=== PATIENT | male | born 2000 | race Caucasian/White ===

== ENCOUNTER 2020-09-23 11:15 | Emergency (ER) | payer SELFPAY ==
[2020-09-23 11:41] VITALS: BP 118/79; PULSE 58; RESP 18; TEMP 36.9; O2SAT 98; BMI 28.7
--- NOTE | 2020-09-23 11:59 | HMH.EDUTC ---
[facility] [place] Disposition Clinical Impression: Eye problem Disposition: Home, Self-Care Condition on Discharge: Good Instructions: Corneal Abrasion, DI for Eye Flash Burn, Erythromycin Ophthalmic Additional Instructions: Do not rub eye Take off patch tomorrow morning and apply ointment in eye every 6 hours for 3 days Follow up with [facility] if no improvement or any worsening of symptoms Return if needed Straight to ER if any life threatening symptoms Referrals: Juancho Mehta MD [Primary Care Provider] - As needed [facility] [Other] Forms: Work/School Release Time of Disposition: 12:47 Medical Decision Making - [place] Inquiry Pt receiving controlled substance: No [place] was queried for this patient: No Vital Signs: 09/23/20 11:41 09/23/20 12:49 Temperature 98.5 F 98.5 F Temperature Source Oral Pulse Rate 58 L Pulse Rate [Right Brachial] 58 L Respiratory Rate 18 18 Blood Pressure 118/79 Blood Pressure [Right Arm] 118/79 Blood Pressure Mean [Right Arm] 92 Blood Pressure Source [Right Arm] Automatic Cuff Blood Pressure Position [Right Arm] Sitting 02 Sat by Pulse Oximetry 98 Oxygen Delivery Method Room Air Orders (Tests/Meds): ED MEDICATIONS Discontinued Medications Generic Name Dose Route Start Last Admin Trade Name Freq PRN Reason Stop Dose Admin Erythromycin 1 gm 09/23/20 12:48 09/23/20 12:50 Erythromycin Base 1 Gm Oint...G. OP 09/23/20 12:49 1 gm ONCE ONE Administration Fluorescein Sodium 1 mg 09/23/20 12:48 09/23/20 12:50 Fluorescein Sodium 1mg Strip OP 09/23/20 12:49 1 mg ONCE ONE Administration Tetracaine HCl 0 ml 09/23/20 12:48 09/23/20 12:50 Tetracaine 0.5% Opth Yoselin 15ml OP 09/23/20 12:49 1 applicatio ONCE ONE Administration - Physician Consults Physician Consulted: Dr Díaz Time: 12:35 Reason -: Opthalmology Eval/Care Comment/Response: Spoke with Dr Díaz and he agreed, place erythromycin ointment in eye patch and removed in Morning and erythromycin ointment four times daily for the next 3 days Medical Decision Narrative: Eye exam with simons light performed and consulted with ED physician and they viewed eye also with simons lamp no obvious FB noted however small amount of uptake noted possibly small abrasion will treat like corneal abrasion and have patient follow up with [facility] for further evaluation and examination [facility] [place] HPI - General Stated complaint: Ao 718 12noon has foreign object in the r eye Time Seen by Provider: 09/23/20 11:59 Mode of Arrival: Ambulatory Source of Information: Patient Limitations: No Limitations Description of Symptoms (Recalled from Triage Doc. by RN): PATIENT REPORTS POSSIBLY GETTING SOMETHING IN HIS RIGHT EYE YESTERDAY WHILE WELDING AT WORK. 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 and not sure if he may have got something in his eye or has welders flash State that yesterday his eye was hurting and felt irritated like something was in it and watering State that was sensative to light states that today it feels a little better but feels like something may be in there and feels scratchy when he blinks denies changes in vision - Related Data Previous Rx's Medication Instructions Recorded ondansetron 4 mg disintegrating 4 mg PO Q8H PRN #14 tab 08/16/18 tablet Ibuprofen [Ibuprofen 600mg Tab] 600 mg PO Q6HP PRN #20 tab 01/06/19 Allergies Allergy/AdvReac Type Severity Reaction Status Date / Time No Known Allergies Allergy Verified 08/16/18 10:48 - Worker's Comp Is this a Worker's Comp case?: No [facility] History - Hepatiti
[2020-09-23 12:49] VITALS: BP 118/79; PULSE 58; RESP 18; TEMP 36.9; O2SAT 98
== END 2020-09-23 12:55 | disposition home or self-care (01) ==
PROVIDERS: Emergency Provider Nurse Practitioner; PCP Emergency Medicine
DX: H16.131 Photokeratitis, right eye (principal); W89.8XXA Exposure to other man-made visible and ultraviolet light, initial encounter; Y92.63 Factory as the place of occurrence of the external cause; Y99.0 Civilian activity done for income or pay
CPT/HCPCS: 99202; G0463

== ENCOUNTER 2021-08-16 22:56 | Emergency (ER) | payer SELFPAY ==
[2021-08-16 22:57] VITALS: BP 145/80; PULSE 60; RESP 17; TEMP 36.9; O2SAT 99; BMI 28.7
--- NOTE | 2021-08-16 23:01 | HMH.EDGENADL ---
ED Disposition Clinical Impression: Epigastric abdominal pain Disposition: Home, Self-Care Condition on Discharge: Good Instructions: DI for Acute Abdominal Pain Additional Instructions: Use the medication as prescribed and return to the ER for any new or worsening symptoms. Prescriptions: Sucralfate [Carafate 1gm Tab] 1 gm PO ACHS 10 Days #30 tab Transmission Status: Received by [facility] Referrals: Provider,Referral, [Primary Care Provider] - Forms: Work/School Release - Critical Care Critical Care Time: No Attestation: On , the high probability of a clinically significant, sudden or life threatening deterioration of the following system(s) required my full and direct attention, intervention and personal management. The time I documented below is in addition to time spent performing reported procedures but includes the following listed in this critical care notation. Medical Decision Making - Medical Records Medical records reviewed: Yes: I reviewed the patient's medical records. - [place] Inquiry Pt receiving controlled substance: No Vital Signs: 08/16/21 22:57 08/17/21 00:34 Temperature 98.5 F 98.2 F Temperature Source Oral Oral Pulse Rate 59 L Pulse Rate [Right] 60 Respiratory Rate 17 17 Blood Pressure 123/73 Blood Pressure [Right Arm] 145/80 H Blood Pressure Mean [Right Arm] 101 Blood Pressure Source [Right Arm] Automatic Cuff Blood Pressure Position [Right Arm] Supine 02 Sat by Pulse Oximetry 99 Oxygen Delivery Method Room Air Room Air - Lab Data Lab Results 08/16/21 23:40: WBC 8.5, RBC 4.82, Hgb 15.1, Hct 43.9, MCV 91.1, MCH 31.3 H, MCHC 34.3, RDW 12.6, Plt Count 278, MPV 8.7, Neut % (Auto) 56.8, Lymph % (Auto) 31.5, [place] % (Auto) 6.9, Eos % (Auto) 2.7, Baso % (Auto) 2.1 H, Neut # (Auto) 4.8, Lymph # (Auto) 2.7, [place] # (Auto) 0.6, Eos # (Auto) 0.2, Baso # (Auto) 0.2 08/16/21 23:40: Sodium 139, Potassium 3.2 L, Chloride 105, Carbon Dioxide 24, Anion Gap 13.2, BUN 9, Creatinine 0.70, Estimated Creat Clear 212, Estimated GFR 141, Est GFR ( Amer) 171, Glucose 109 H, Calcium 9.4, Total Bilirubin 1.1, AST 25, ALT 17, Alkaline Phosphatase 70, Total Protein 7.4, Albumin 4.5, Globulin 2.9, Albumin/Globulin Ratio 1.6, Lipase 35 Result diagrams: 08/16/21 23:40 08/16/21 23:40 Orders (Tests/Meds): ED MEDICATIONS Discontinued Medications Generic Name Dose Route Start Last Admin Trade Name Freq PRN Reason Stop Dose Admin Belladonna Alkaloids 60 ml 08/16/21 23:16 08/16/21 23:46 Gi Cocktail 60ml Udc PO 08/16/21 23:17 60 ml ONCE ONE Administration Dicyclomine HCl 20 mg 08/16/21 23:16 08/16/21 23:46 Dicyclomine 10mg Capsule PO 08/16/21 23:17 20 mg ONCE ONE Administration Ondansetron HCl 4 mg 08/16/21 23:16 08/16/21 23:46 Ondansetron 4mg/2ml Vial IV 08/16/21 23:17 4 mg ONCE ONE Administration Simethicone 160 mg 08/16/21 23:16 08/16/21 23:46 Simethicone 80mg Chewable Tablet PO 08/16/21 23:17 160 mg ONCE ONE Administration - Radiology Data #1 Image(s): Abdomen Image Reviewed: Yes I have reviewed radiologist's interpretation Preliminary Findings: Normal/NAD rdering Physician: Pete Paz MD Date of Service: 08/16/21 Procedure(s): XR acute abdomen series Accession Number(s): [id number] cc: Wes Richardson MD; Provider,Referral MD~ PROCEDURE INFORMATION: Exam: XR Complete Acute Abdomen Series Including Chest Exam date and time: 08/16/2021 11:16 PM Age: 20 years old Clinical indication: Abdominal pain; Epigastric; Additional info: Epigastric abdominal pain TECHNIQUE: Imaging protocol: XR complete acute abdomen series, including 2 or more views of the abdomen and a single view chest. COMPARISON: CR CXR CHEST(2 VIEWS-NOT PORTABLE) 05/17/2016 2:27 PM FINDINGS: Lungs: Normal. No consolidation. Pleural spaces: Normal. No pleural effusions. No pneumothorax. He
--- NOTE | 2021-08-16 23:16 | XR_ITS ---
PROCEDURE INFORMATION: Exam: XR Complete Acute Abdomen Series Including Chest Exam date and time: 08/16/2021 11:16 PM Age: 20 years old Clinical indication: Abdominal pain; Epigastric; Additional info: Epigastric abdominal pain TECHNIQUE: Imaging protocol: XR complete acute abdomen series, including 2 or more views of the abdomen and a single view chest. COMPARISON: CR CXR CHEST(2 VIEWS-NOT PORTABLE) 05/17/2016 2:27 PM FINDINGS: Lungs: Normal. No consolidation. Pleural spaces: Normal. No pleural effusions. No pneumothorax. Heart/Mediastinum: Normal. No cardiomegaly. Gastrointestinal tract: Normal. No bowel dilation. Intraperitoneal space: Normal. No free air. Bones/joints: Normal. No acute fracture. Soft tissues: Normal. IMPRESSION: No acute findings.
[2021-08-16 23:52] LABS: Basophils # 0.2 K/mm3 (0-0.2); Basophils % 2.1 % (0.1-2.0); Eosinophils # 0.2 K/mm3 (0.0-0.4); Eosinophils % 2.7 % (0.1-12.0); Hematocrit 43.9 % (42.0-52.0); Hemoglobin 15.1 g/dL (14.1-18.0); Lymphocytes # 2.7 K/mm3 (0.7-4.5); Lymphocytes % 31.5 % (10-50); Mean Corpuscular HGB Conc 34.3 g/dL (31.8-35.4); Mean Corpuscular Hemoglobin 31.3 pg (27.0-31.2); Mean Corpuscular Volume 91.1 fl (80-94); Mean Platelet Volume 8.7 fl (7.4-10.4); Monocytes # 0.6 K/mm3 (0.1-1.0); Monocytes % 6.9 % (1.7-9.3); Neutrophils # 4.8 K/mm3 (1.8-7.8); Neutrophils % 56.8 % (37.0-80.0); Platelet Count 278 K/mm3 (142-424); Red Blood Count 4.82 M/mm3 (4.60-6.20); Red Cell Distribution Width 12.6 % (11.5-17.5); White Blood Count 8.5 K/mm3 (4.8-10.8)
[2021-08-17 00:21] LABS: Alanine Aminotransferase 17 U/L (12-78); Albumin Level 4.5 g/dl (3.5-5.0); Albumin/Globulin Ratio 1.6 (1.1-1.8); Alkaline Phosphatase 70 U/L (38-126); Anion Gap 13.2 mEq/L (5-15); Aspartate Amino Transferase 25 U/L (17-59); Bilirubin,Total 1.1 mg/dl (0.2-1.3); Blood Urea Nitrogen 9 mg/dl (9-20); Calcium 9.4 mg/dl (8.4-10.2); Carbon Dioxide 24 mmol/L (22.0-30.0); Chloride 105 mmol/L (98-107); Creatinine Clearance Estimated 212 mL/min (50-200); Estimated Glomerular Filt Rate 141 ml/min (>60); GFR (African American) 171 ML/MIN (>60); Globulin 2.9 g/dL (1.3-3.2); Glucose 109 mg/dl (74-100); Lipase 35 U/L (23-300); Potassium 3.2 mmoL/L (3.5-5.1); Sodium 139 mmol/L (136-145); Total Protein,Serum 7.4 g/dl (6.3-8.2)
[2021-08-17 00:34] VITALS: BP 123/73; PULSE 59; RESP 17; TEMP 36.8; O2SAT 100
== END 2021-08-17 00:49 | disposition home or self-care (01) ==
PROVIDERS: Emergency Provider Student in an Organized Health Care Education/Training Program
DX: R10.13 Epigastric pain (principal)
CPT/HCPCS: 74021; 80053; 83690; 85025; 96374; 99284; J2405

== ENCOUNTER 2024-03-04 12:42 | Emergency (ER) | payer SELFPAY ==
[2024-03-04 15:12] VITALS: BP 0/0; PULSE 0; RESP 0; TEMP -17.7; TEMP 0
== END 2024-03-04 15:12 | disposition left against medical advice (07) ==
PROVIDERS: Emergency Provider Nurse Practitioner Family
DX: Z53.21 Procedure and treatment not carried out due to patient leaving prior to being seen by health care provider (principal)